=== PATIENT | female | born 1955 | race Caucasian/White ===

== ENCOUNTER 2020-08-06 10:56 | Inpatient (IN) | payer MEDICARE, MEDICAID, SELFPAY ==
[2020-08-06 11:11] VITALS: BP 117/75; PULSE 70; RESP 22; TEMP 36.6; O2SAT 96; BMI 27.6
--- NOTE | 2020-08-06 11:33 | W.ED.PSYCH ---
HPI - Psych General: Chief Complaint: Psychiatric Symptoms Stated Complaint: HALLUCINATIONS, ANXIETY Time Seen by Provider: 08/06/20 11:25 History of Present Illness: HPI Narrative: Patient arrives via ambulance from the [facility] because of anxiety and hallucinations. Patient was given 4 of Versed supposedly an ambulance to help get her come down to get an ambulance she does have an IV in. Patient is very fearful story is that she has been off her psych meds pry for at least 2 months she said she is taking them but they have not been filled by her daughter for at least 2 to 3 months. Patient is diabetic he said she is been given her insulin and her sugars have been checked and been fine. Patient says she is hearing voices that are telling her to hurt herself and she did want to act on the voices but some time she does. MD complaint: suicidal ideation and altered mental status Onset (ago): day(s) Duration: getting worse History of same: Yes Relieving factors: none Exacerbating factors: none Associated psychiatric symptoms: suicidal ideation and auditory hallucinations Associated symptoms: Reports no associated symptoms, auditory hallucinations and suicidal ideation; Deny depression Treatments prior to arrival: chemical restraints (Versed by the ambulance personnel) Review of Systems Const: Denies: fever(s), chills or body aches Eyes: Denies: change in vision or blurry vision ENMT: Denies: throat pain or nasal congestion Card: Denies: chest pain or dyspnea on exertion Resp: Denies: dyspnea, productive cough or non-productive cough GI: Denies: abdominal pain, nausea or vomiting Musc: Denies: extremity pain Skin/Breast: Denies: rash Neuro: Denies: headache(s) Psych: Reports: anxiety, panic attacks, auditory hallucinations and suicidal ideation; Denies: depression Tobin/Lymph: Denies: easy bruising Physical Exam Const: COMMON NORMALS: no acute distress, average body habitus and patient oriented x3 HENMT: COMMON NORMALS: normocephalic HEAD & SCALP: normal to inspection and normocephalic FACE & SINUS: normal facial exam Eye: COMMON NORMALS: conjunctivae normal GENERAL EYE: appearance normal, both eyes and all related structures CONJUNCTIVA: Yes conjunctivae normal Neck/C-Spine: COMMON NORMALS: no JVD Chest: COMMONS NORMALS: normal inspection of the chest Resp: COMMON NORMALS: normal respiratory effort and clear to auscultation bilaterally AUSCULTATION: clear to auscultation bilaterally Cardio: COMMON NORMALS: no JVD, regular rate and regular rhythm RATE: regular rate RHYTHM: regular rhythm GI: COMMON NORMALS: Normal to inspection, nondistended, normoactive bowel sounds present Extremity: COMMON NORMALS: normal to inspection and full ROM Neuro: COMMON NORMALS: patient oriented x3 Psych: COMMON NORMALS: cooperative and speech normal ATTITUDE: Yes paranoid and Yes Guarded attititude/behavior present ACTIVITY/MOTOR BEHAVIOR: Yes appropriate eye contact SPEECH: Yes normal speech MOOD & AFFECT: Yes anxious and Yes fearful MDM - Psych MDM Narrative: Medical decision making narrative: Spoke with Dr. Lerma he accepts care of the patient Lab Data: Labs: Lab Results 08/06/20 08/06/20 08/06/20 Range/Units 12:05 12:05 12:05 WBC 14.4 H (4.0-10.0) 10^3/ uL RBC 4.71 (4.1-5.3) 10^6/u L Hgb 14.3 (11.5-15.3) g/dL Hct 44.8 (37.0-47.0) % MCV 95.1 (81-99) fL MCH 30.4 (28.0-34.0) pg MCHC 31.9 (30.0-36.0) g/dL RDW 12.5 (12.1-15.1) % Plt Count 403 H (130-400) 10^3/c mm MPV 9.1 (7.4-10.4) fL Neut % (Auto) 58.4 % Lymph % (Auto) 29.5 % [place] % (Auto) 5.8 % Eos % (Auto) 4.0 % Baso % (Auto) 1.8 % Neut # (Auto) 8.40 H (1.8-7.7) 10^3/u L Lymph # (Auto) 4.2 (0.8-4.8) 10^3/u L [place] # (Auto) 0.8 (0.2-0.9) 10^3/u L Eos # (Auto) 0.6 (0.0-0.8) 10^3/u L Baso # (Auto) 0.3 H (0.0-0.1) 10^3/u L Nucleated RBC % (a uto) 0 % Nucleated RBCs # 0.0 /100WBC Sodium 141 (136-145) mmol/L Potassium 4.2 (3.5-5.1) mmol/L Chloride 102 (98-107) mmol/L Carbon Dioxide 26 (22-29) mmol/L Anion Gap 17.2 (5-19) BUN 11 (8-23) mg/dL Creatinine 0.7 (0.5-0.9) mg/dL GFR Calculation 84.2 L (90-130) mL/min Glucose 176 H (65-115) mg/dL Calculated Osmolal ity 296 H (285-295) mOsm/k g Calcium 10.2 (8.5-10.5) mg/dL Total Bilirubin 0.2 (0.15-1.2) mg/dL AST 25 (0-32) U/L ALT 44 H (0-33) U/L Alkaline Phosphata se 100 (35-105) IU/L Total Protein 8.0 (6.6-8.7) g/dL Albumin 4.3 (3.5-5.2) g/dL Globulin 3.7 (1.3-4.6) g/dL TSH 0.44 (0.27-4.20) uIU/ mL Free T4 1.41 (0.82-1.77) ng/d L Free T3 2.6 (2.0-4.4) PG/ML Urine Color (Yellow) Urine Appearance (CLEAR) Urine pH (5-7) Ur Specific Gravit y (1.005-1.030) Urine Protein (Negative) Urine Glucose (UA) (Normal) Urine Ketones (Negative) Urine Blood (Negative) Urine Nitrate (Negative) Urine Bilirubin (Negative) Urine Urobilinogen (Negative) mg/dL Ur Leukocyte Maryam ase (Negative) Salicylates < 0.3 L (3-10) mg/dL Urine Opiates Scre en (Negative) ng/mL Acetaminophen < 5.0 L (10-30) ug/mL Ur Barbiturates Sc reen (Negative) ng/mL Ur Phencyclidine S crn (Negative) ng/mL Ur Amphetamines Sc reen (Negative) ng/mL U Benzodiazepines Scrn (Negative) ng/mL Urine Cocaine Scre en (Negative) ng/mL U Marijuana (THC) Screen (Negative) ng/mL Ethyl Alcohol < 10 (0-10) mg/dL 08/06/20 08/06/20 Range/Units 12:31 12:31 WBC (4.0-10.0) 10^3/ uL RBC (4.1-5.3) 10^6/u L Hgb (11.5-15.3) g/dL Hct (37.0-47.0) % MCV (81-99) fL MCH (28.0-34.0) pg MCHC (30.0-36.0) g/dL RDW (12.1-15.1) % Plt Count (130-400) 10^3/c mm MPV (7.4-10.4) fL Neut % (Auto) % Lymph % (Auto) % [place] % (Auto) % Eos % (Auto) % Baso % (Auto) % Neut # (Auto) (1.8-7.7) 10^3/u L Lymph # (Auto) (0.8-4.8) 10^3/u L [place] # (Auto) (0.2-0.9) 10^3/u L Eos # (Auto) (0.0-0.8) 10^3/u L Baso # (Auto) (0.0-0.1) 10^3/u L Nucleated RBC % (a uto) % Nucleated RBCs # /100WBC Sodium (136-145) mmol/L Potassium (3.5-5.1) mmol/L Chloride (98-107) mmol/L Carbon Dioxide (22-29) mmol/L Anion Gap (5-19) BUN (8-23) mg/dL Creatinine (0.5-0.9) mg/dL GFR Calculation (90-130) mL/min Glucose (65-115) mg/dL Calculated Osmolal ity (285-295) mOsm/k g Calcium (8.5-10.5) mg/dL Total Bilirubin (0.15-1.2) mg/dL AST (0-32) U/L ALT (0-33) U/L Alkaline Phosphata se (35-105) IU/L Total Protein (6.6-8.7) g/dL Albumin (3.5-5.2) g/dL Globulin (1.3-4.6) g/dL TSH (0.27-4.20) uIU/ mL Free T4 (0.82-1.77) ng/d L Free T3 (2.0-4.4) PG/ML Urine Color Yellow (Yellow) Urine Appearance Clear (CLEAR) Urine pH 5.0 (5-7) Ur Specific Gravit y 1.010 (1.005-1.030) Urine Protein Neg (Negative) Urine Glucose (UA) Norm (Normal) Urine Ketones Negative (Negative) Urine Blood Neg (Negative) Urine Nitrate Negative (Negative) Urine Bilirubin Neg (Negative) Urine Urobilinogen Norm (Negative) mg/dL Ur Leukocyte Maryam ase Negative (Negative) Salicylates (3-10) mg/dL Urine Opiates Scre en Negative (Negative) ng/mL Acetaminophen (10-30) ug/mL Ur Barbiturates Sc reen Negative (Negative) ng/mL Ur Phencyclidine S crn Negative (Negative) ng/mL Ur Amphetamines Sc reen Negative (Negative) ng/mL U Benzodiazepines Scrn Negative (Negative) ng/mL Urine Cocaine Scre en Negative (Negative) ng/mL U Marijuana (THC) Screen Negative (Negative) ng/mL Ethyl Alcohol (0-10) mg/dL Discharge Plan Discharge Admit Provider: Arnaldo Lerma Discharge Date/Time: 08/06/20 16:02 Coding Level of Care Code ED Railcar Mechanic for Michael Fwd Exam Comprehensive
[2020-08-06 12:14] LABS: Basophils # 0.3 10^3/uL (0.0-0.1); Basophils % 1.8 %; Eosinophils # 0.6 10^3/uL (0.0-0.8); Hematocrit 44.8 % (37.0-47.0); Hemoglobin 14.3 g/dL (11.5-15.3); Lymphocytes # 4.2 10^3/uL (0.8-4.8); Lymphocytes % 29.5 %; Mean Corpuscular HGB Conc 31.9 g/dL (30.0-36.0); Mean Corpuscular Hemoglobin 30.4 pg (28.0-34.0); Mean Corpuscular Volume 95.1 fL (81-99); Mean Platelet Volume 9.1 fL (7.4-10.4); Monocytes # 0.8 10^3/uL (0.2-0.9); Monocytes % 5.8 %; Neutrophils % 58.4 %; Nucleated Red Blood Cells % 0 %; Platelet Count 403 10^3/cmm (130-400); Red Blood Count 4.71 10^6/uL (4.1-5.3); Red Cell Distribution Width 12.5 % (12.1-15.1); White Blood Count 14.4 10^3/uL (4.0-10.0)
[2020-08-06 12:42] LABS: Add Urine Microscopic? NO
[2020-08-06] MEDS: LORazepam 2 mg/mL INJ 1 mL IM (12:43)
[2020-08-06 12:47] LABS: Alanine Aminotransferase 44 U/L (0-33); Albumin Level 4.3 g/dL (3.5-5.2); Alkaline Phosphatase 100 IU/L (35-105); Anion Gap 17.2 (5-19); Aspartate Amino Transferase 25 U/L (0-32); Blood Urea Nitrogen 11 mg/dL (8-23); Calcium 10.2 mg/dL (8.5-10.5); Carbon Dioxide 26 mmol/L (22-29); Chloride 102 mmol/L (98-107); Globulin 3.7 g/dL (1.3-4.6); Glomerular Filtration Rate 84.2 mL/min (90-130); Glucose 176 mg/dL (65-115); Osmolality Calculated 296 mOsm/kg (285-295); Potassium 4.2 mmol/L (3.5-5.1); Sodium 141 mmol/L (136-145); Thyroid Stimulating Hormone 0.44 uIU/mL (0.27-4.20); Total Bilirubin 0.2 mg/dL (0.15-1.2)
[2020-08-06 12:48] LABS: Slide Review Slide Review Perform
[2020-08-06 12:53] LABS: Acetaminophen < 5.0 ug/mL (10-30); Alcohol Level < 10 mg/dL (0-10); Salicylate < 0.3 mg/dL (3-10)
[2020-08-06 12:56] LABS: Bilirubin Urine Neg (Negative); Blood Urine Neg (Negative); Glucose Urine UA Norm (Normal); Ketones Urine Negative (Negative); Leukocyte Esterase Urine Negative (Negative); Nitrate Urine Negative (Negative); Protein Urine Neg (Negative); Urine Appearance Clear (CLEAR); Urine Color Yellow (Yellow); Urobilinogen Urine Norm (Negative)
[2020-08-06 13:04] LABS: Amphetamines Screen Urine Negative (Negative); Barbiturates Screen Urine Negative (Negative); Benzodiazepines Screen Urine Negative (Negative); Cocaine Screen Urine Negative (Negative); Opiate Screen Urine Negative (Negative); PCP Screen Urine Negative (Negative); THC Screen Urine Negative (Negative)
[2020-08-06 14:20] VITALS: BP 137/82; PULSE 78; RESP 18; TEMP 36.9; O2SAT 96
[2020-08-06 15:25] LABS: Free T4 Free Thyroxine 1.41 ng/dL (0.82-1.77); T3 Free 2.6 PG/ML (2.0-4.4)
[2020-08-06 16:00] VITALS: BP 142/79; PULSE 75; RESP 20; TEMP 37; O2SAT 97
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
[2020-08-06 16:46] LABS: Glucose Point of Care 140 mg/dL (70-110)
[2020-08-06] MEDS: metformin 500 mg Tablet 1000 MG PO (17:34)
--- NOTE | 2020-08-06 17:39 | PC.NURSE ---
home med Gabapentin verified with [facility] pharmacy. pharmacist states she takes 300 mg gabapentin twice daily, in the morning and afternoon, and 600 mg gabapentin at bedtime.
[2020-08-06] MEDS: OLANZapine 5 mg ODT PO (18:54)
--- NOTE | 2020-08-06 18:54 | PC.NURSE ---
PRN ZYPREXA ZYDIS 5 MG GIVEN PO PER PT C/O HALLUCINATIONS. PT TEARFUL, TOLD STAFF SHE IS SEEING PEOPLE ON THE QUIROZ IN HER ROOM PT ASSURED BY STAFF THAT NO ONE WAS IN HER ROOM BESIDES HER FEMALE ROOMMATE, WHO IS CURRENTLY ASLEEP IN HER OWN BED. WILL CONT TO MONITOR.
[2020-08-06 19:31] LABS: Glucose Point of Care 248 mg/dL (70-110)
[2020-08-06] MEDS: acetaminophen 325 mg Tablet 650 MG PO (20:28)
[2020-08-06] MEDS: hyDROXYzine 25 mg Capsule 50 MG PO (20:29)
[2020-08-06] MEDS: duloxetine 60 mg Capsule PO (20:29)
[2020-08-06] MEDS: gabapentin 300 mg Capsule 600 MG PO (20:29)
[2020-08-06 21:00] VITALS: BP 128/81; PULSE 75; RESP 20; TEMP 36.8; O2SAT 98
--- NOTE | 2020-08-06 22:48 | PC.NURSE ---
ON ASSESSMENT BILATERAL LUNG SOUNDS ARE CLEAR THROUGHOUT, HEART SOUNDS NORMAL S1 & S2 WITHOUT MURMUR, BOWEL SOUNDS ARE PRESENT IN ALL FOUR QUADRANTS. APPROXIMATELY 1930 PATIENT WENT TO BED. SHE SAID SHE NOT COMFORTABLE IN HER BED AND HER SHOULDER IS HURTING. SHE ASKED FOR PAIN MEDICATION. SHE RECEIVED 650MG PO TYLENOL FOR PAIN RATED 6 ON A 1-10 PAIN SCALE. UPON REASSESSMENT SHE IS RESTING IN HER ROOM WITHOUT ANY APPARENT DISTRESS AT THIS TIME.
[2020-08-07 06:00] VITALS: BP 128/83; PULSE 66; RESP 18; TEMP 36.5; O2SAT 96
[2020-08-07 06:43] LABS: Glucose Point of Care 229 mg/dL (70-110)
[2020-08-07] MEDS: metformin 500 mg Tablet 1000 MG PO ×2 (07:43→17:13)
[2020-08-07] MEDS: duloxetine 60 mg Capsule PO ×2 (07:43→22:53)
[2020-08-07 09:25] VITALS: BP 128/83
[2020-08-07] MEDS: levothyroxine 150 mcg Tablet PO (09:25)
[2020-08-07] MEDS: losartan 50 mg Tablet 100 MG PO (09:25)
[2020-08-07] MEDS: gabapentin 300 mg Capsule PO ×2 (09:26→11:45)
[2020-08-07] MEDS: atorvastatin 40 mg Tablet 20 MG PO (09:26)
[2020-08-07 11:22] LABS: Glucose Point of Care 177 mg/dL (70-110)
[2020-08-07] MEDS: ARIPiprazole 10 mg Tablet 5 MG PO (11:46)
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
[2020-08-07 13:22] LABS: T4 Total 14.2 mcg/dL (5.1-11.9)
[2020-08-07 14:00] VITALS: BP 115/68; PULSE 88; RESP 18; TEMP 36.3; O2SAT 97
[2020-08-07 14:23] LABS: T3 Total 149 ng/dL (76-181)
[2020-08-07 16:44] LABS: Glucose Point of Care 203 mg/dL (70-110)
[2020-08-07] MEDS: acetaminophen 325 mg Tablet 650 MG PO ×2 (17:14→20:52)
[2020-08-07 19:39] LABS: Glucose Point of Care 183 mg/dL (70-110)
[2020-08-07 19:40] VITALS: BP 107/68; PULSE 80; RESP 18; TEMP 36.8; O2SAT 94
[2020-08-07] MEDS: hyDROXYzine 25 mg Capsule 50 MG PO (20:52)
[2020-08-07] MEDS: trazodone 50 mg Tablet PO (20:53)
[2020-08-07] MEDS: gabapentin 300 mg Capsule 600 MG PO (20:54)
--- NOTE | 2020-08-08 04:15 | PC.NURSE ---
This patient is having generalized pain all over her body.She said that she has some anxiety and is hearing whispers. She stated that she is hearing music that overtakes what people say to her and it keeps her awake. She was given visteril and trazodone.
[2020-08-08 06:00] VITALS: BP 108/69; PULSE 87; RESP 17; TEMP 36.9; O2SAT 94
[2020-08-08 06:55] LABS: Glucose Point of Care 211 mg/dL (70-110)
[2020-08-08 08:37] VITALS: BP 108/69
[2020-08-08] MEDS: metformin 500 mg Tablet 1000 MG PO ×2 (08:37→16:51)
[2020-08-08] MEDS: losartan 50 mg Tablet 100 MG PO (08:37)
[2020-08-08] MEDS: gabapentin 300 mg Capsule PO ×2 (08:38→12:02)
[2020-08-08] MEDS: duloxetine 60 mg Capsule PO ×2 (08:38→20:33)
[2020-08-08] MEDS: levothyroxine 150 mcg Tablet PO (08:38)
[2020-08-08] MEDS: atorvastatin 40 mg Tablet 20 MG PO (08:39)
[2020-08-08] MEDS: ARIPiprazole 10 mg Tablet 5 MG PO ×2 (08:39→13:06)
[2020-08-08] MEDS: acetaminophen 325 mg Tablet 650 MG PO ×2 (09:14→20:34)
--- NOTE | 2020-08-08 11:22 | P.PN_ITS ---
Subjective NPU Subjective: Interval history: Pricilla presents today reporting that she is feeling a little better. She still hearing voices but she says that they are diminished. She reports that she slept a little better last night and that she is eating fine. We discussed the risk benefits and alternatives of increasing her Abilify to 10 mg p.o. every morning and she understood and agreed to proceed as is documented in this note. Mental Status Exam MSE Comments: This is an overweight older white female with adequate dress limited grooming. With no abnormal movements except for psychomotor ret ardation. Cooperative with exam in no acute distress. Speech was decreased rate and volume. Mood described as a little better, affect congruent. Thought process organized. Thought content: Patient denied suicidal ideation, she endorsed occasional homicidal thoughts, no delusions noted but paranoia which is improving was reported. And she does endorse hearing voices which is diminishing, but improving. Attention and concentration are intact and memory appears reliable but none were formally tested. She is alert and oriented x3. Insight and judgment are limited, but improving. Vitals/I&O/Wt Last Vital Signs Temp 98.5 F 08/08/20 06:00 Pulse 87 08/08/20 06:00 Resp 17 08/08/20 06:00 BP 108/69 08/08/20 08:37 Pulse Ox 94 08/08/20 06:00 Data NPU : 08/06/20 12:05 08/06/20 12:05 A&P Additional A&P Information (1) Schizoaffective disorder: This is a 64-year-old white female who presents reporting depression and psyc hosis with recent psychosocial challenges who presents endorsing a willingness to try an antipsychotic. 1. Continue current medication. Except: Increase Abilify to 10 mg p.o. every morning 2. Continue every 15 minute checks for safety. 3. Encourage individual, group and milieu therapy. Involuntary Hold Information 96 Hour Hold: 96 Hour Involuntary Admission: No Attestations NPU Medical Necessity Statement*: Inpatient hospitalization is medically necessary and the clinically appropriate intervention at this time. We will monitor medications and titrate as indicated. Likely length of stay 2-4 days. Coding Level of Care Code Acute Dryland Farmer for Michael Navarro
[2020-08-08 14:00] VITALS: BP 110/70; PULSE 80; RESP 20; TEMP 37.4; O2SAT 95
[2020-08-08 19:34] LABS: Glucose Point of Care 96 mg/dL (70-110)
[2020-08-08] MEDS: gabapentin 300 mg Capsule 600 MG PO (20:32)
[2020-08-08] MEDS: trazodone 50 mg Tablet PO (20:33)
[2020-08-08] MEDS: hyDROXYzine 25 mg Capsule 50 MG PO (20:34)
[2020-08-08 21:10] VITALS: BP 128/72; PULSE 84; RESP 13; TEMP 36.6; O2SAT 95
[2020-08-09] MEDS: acetaminophen 325 mg Tablet 650 MG PO ×2 (05:36→12:35)
[2020-08-09 06:00] VITALS: BP 131/47; PULSE 65; RESP 17; TEMP 35.9; O2SAT 91
[2020-08-09 06:57] LABS: Glucose Point of Care 217 mg/dL (70-110)
[2020-08-09] MEDS: duloxetine 60 mg Capsule PO (08:01)
[2020-08-09] MEDS: levothyroxine 150 mcg Tablet PO (08:01)
[2020-08-09] MEDS: metformin 500 mg Tablet 1000 MG PO (08:01)
[2020-08-09] MEDS: ARIPiprazole 10 mg Tablet PO (08:01)
[2020-08-09] MEDS: atorvastatin 40 mg Tablet 20 MG PO (08:02)
[2020-08-09] MEDS: gabapentin 300 mg Capsule PO ×2 (08:02→11:30)
[2020-08-09] MEDS: losartan 50 mg Tablet 100 MG PO (08:02)
--- NOTE | 2020-08-09 10:53 | PC.SOCIAL ---
Important Medicare Message Reviewed page 1 & 2 of Important Medicare Message with patient. Verbalized understanding and signed page 2. Original to patient and copy in chart.
[2020-08-09 11:15] LABS: Glucose Point of Care 149 mg/dL (70-110)
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
[2020-08-09 12:01] VITALS: BP 131/47; PULSE 65; RESP 17; TEMP 35.9; O2SAT 91
== END 2020-08-09 12:58 | disposition home or self-care (01) | DRG 885 ==
LOC: ER 11:32 → NP 13:55
PROVIDERS: Nurse Practitioner Family; Admitting Provider Psychiatry & Neurology Psychiatry; Visit Provider Psychiatry & Neurology Psychiatry
DX: F25.9 Schizoaffective disorder, unspecified (principal); R45.851 Suicidal ideations; I10 Essential (primary) hypertension; E78.00 Pure hypercholesterolemia, unspecified; E11.9 Type 2 diabetes mellitus without complications; E03.9 Hypothyroidism, unspecified; Z91.14 Patient's other noncompliance with medication regimen; Z79.4 Long term (current) use of insulin
CPT/HCPCS: 12345; 36415; 36416; 80053; 80306; 80307; 81003; 82962; 84436; 84439; 84443; 84480; 84481; 85025; 96372; 99284; J1815; J2060

== ENCOUNTER → 2020-09-26 08:38 | Outpatient (BNVA) | payer MEDICARE, MEDICAID, SELFPAY | PROVIDERS: Visit Provider Nurse Practitioner Psychiatric/Mental Health | DX: F25.9 Schizoaffective disorder, unspecified (principal); F43.12 Post-traumatic stress disorder, chronic | CPT/HCPCS: 99214 ==

== ENCOUNTER → 2020-10-24 08:25 | Outpatient (BNVA) | payer MEDICARE, MEDICAID, SELFPAY | PROVIDERS: Visit Provider Nurse Practitioner Psychiatric/Mental Health | DX: F25.1 Schizoaffective disorder, depressive type (principal); F43.12 Post-traumatic stress disorder, chronic | CPT/HCPCS: 99212 ==

== ENCOUNTER → 2020-11-21 08:22 | Outpatient (BNVA) | payer MEDICARE, MEDICAID, SELFPAY | PROVIDERS: Visit Provider Nurse Practitioner Psychiatric/Mental Health | DX: F25.1 Schizoaffective disorder, depressive type (principal); F43.12 Post-traumatic stress disorder, chronic | CPT/HCPCS: 99212 ==

== ENCOUNTER → 2020-12-04 08:42 | Outpatient (BNVA) | payer MEDICARE, MEDICAID, SELFPAY | PROVIDERS: Visit Provider Social Worker | DX: F43.12 Post-traumatic stress disorder, chronic (principal); F25.1 Schizoaffective disorder, depressive type | CPT/HCPCS: 90834 ==

== ENCOUNTER → 2020-12-19 10:04 | Outpatient (BNVA) | payer MEDICARE, MEDICAID, SELFPAY | PROVIDERS: Visit Provider Nurse Practitioner Psychiatric/Mental Health | DX: F25.1 Schizoaffective disorder, depressive type (principal); F43.12 Post-traumatic stress disorder, chronic | CPT/HCPCS: 99213 ==

== ENCOUNTER → 2021-01-15 08:30 | Outpatient (BNVA) | payer MEDICARE, MEDICAID, SELFPAY | PROVIDERS: Visit Provider Social Worker | DX: F43.12 Post-traumatic stress disorder, chronic (principal); F25.1 Schizoaffective disorder, depressive type | CPT/HCPCS: 90834 ==

== ENCOUNTER → 2021-01-21 08:02 | Outpatient (BNVA) | payer MEDICARE, MEDICAID, SELFPAY | PROVIDERS: Visit Provider Nurse Practitioner Psychiatric/Mental Health | DX: F25.1 Schizoaffective disorder, depressive type (principal); F43.12 Post-traumatic stress disorder, chronic | CPT/HCPCS: 99213 ==

== ENCOUNTER → 2021-01-22 08:06 | Outpatient (BNVA) | payer MEDICARE, MEDICAID, SELFPAY | PROVIDERS: Visit Provider Social Worker | DX: F43.12 Post-traumatic stress disorder, chronic (principal); F25.1 Schizoaffective disorder, depressive type | CPT/HCPCS: 90834 ==

== ENCOUNTER → 2021-01-29 07:53 | Outpatient (BNVA) | payer MEDICARE, MEDICAID, SELFPAY | PROVIDERS: Visit Provider Social Worker | DX: F43.12 Post-traumatic stress disorder, chronic (principal); F25.1 Schizoaffective disorder, depressive type | CPT/HCPCS: 90834 ==

== ENCOUNTER → 2021-02-05 08:19 | Outpatient (BNVA) | payer MEDICARE, MEDICAID, SELFPAY | PROVIDERS: Visit Provider Social Worker | DX: F43.12 Post-traumatic stress disorder, chronic (principal); F25.1 Schizoaffective disorder, depressive type | CPT/HCPCS: 90834 ==

== ENCOUNTER → 2021-02-12 09:04 | Outpatient (BNVA) | payer MEDICARE, MEDICAID, SELFPAY | PROVIDERS: Visit Provider Social Worker | DX: F25.1 Schizoaffective disorder, depressive type (principal); F43.12 Post-traumatic stress disorder, chronic | CPT/HCPCS: 90834 ==

== ENCOUNTER → 2021-02-19 13:04 | Outpatient (BNVA) | payer MEDICARE, MEDICAID, SELFPAY | PROVIDERS: Visit Provider Social Worker | DX: F43.12 Post-traumatic stress disorder, chronic (principal); F25.1 Schizoaffective disorder, depressive type | CPT/HCPCS: 90834 ==

== ENCOUNTER → 2021-02-26 09:08 | Outpatient (BNVA) | payer MEDICARE, MEDICAID, SELFPAY | PROVIDERS: Visit Provider Social Worker | DX: F43.12 Post-traumatic stress disorder, chronic (principal); F25.1 Schizoaffective disorder, depressive type | CPT/HCPCS: 90834 ==

== ENCOUNTER → 2021-03-04 14:11 | Outpatient (BNVA) | payer MEDICARE, MEDICAID, SELFPAY | PROVIDERS: Visit Provider Nurse Practitioner Psychiatric/Mental Health | DX: F43.12 Post-traumatic stress disorder, chronic (principal); F25.1 Schizoaffective disorder, depressive type | CPT/HCPCS: 99213 ==

== ENCOUNTER → 2021-03-05 07:52 | Outpatient (BNVA) | payer MEDICARE, MEDICAID, SELFPAY | PROVIDERS: Visit Provider Social Worker | DX: F43.12 Post-traumatic stress disorder, chronic (principal); F25.1 Schizoaffective disorder, depressive type | CPT/HCPCS: 90834 ==